=== PATIENT | male | born 1935 | race Caucasian/White ===

== ENCOUNTER → 2016-07-19 | Outpatient (CLI) | payer MEDICARE, BC, OTHER ==
[~2016-07-19] VITALS: Ht 185.4 cm; Wt 84.1 kg
[~2016-07-19] MED LIST: ALDACTONE50 MG PO; ALOE VERA CONCE1 CAP PO; B & O SUPP1 SUPP.REC RC; BILBERRY; BIOTIN; CEFTIN 250250 MG/TAB PO; CEFTIN500 MG PO; CINNAMON OIL 1 M1 ML; CIPRO 500MG TA500 MG PO; CRANBERRY1 POW; DAZIDOX10 MG PO; DITROPAN XL10 MG PO; DULCOLAX S10 MG/SUPP RC; FARXIGA5 PO; FENUGREEK; FLOMAX 0.40.4 MG/CAP PO; GINKGO4; GLUCOPHAGE500 MG/TAB PO; GLUCOSAMINE SUL1 POW; GRAPE SEED EXTR; JANUMET 500 MG-1 TA1 PO; JUNAMET; LASIX 20MG TABL20 MG PO; LEVOTHYROXINE PO; LEVSIN0.125 M1 SL; LUTEIN; METFORMIN500 MG; MIRALAX 255 GM255 GM PO; MS CONTIN 115 MG/TAB PO; MSM; NATURE S BLEND TP; NORCO 325 MG-51 TAB PO; NORCO 325 MG-7.1 TAB PO; NOVOLOG FLEX100 U/ML SQ; PHARMASSURE CHE30 MG; PHARMASSURE SA160 MG PO; PRIL40 PO; PUMPKIN SEED OIL; PYRIDIUM 100MG100 MG PO; ROXANOL 20MG20 MG/ML PO; SELENIUM; SYNTHROID0.1 MG/TAB PO; THE MEDICINE SH1 DE3 MC; TOPROL XL 25MG25 MG PO; TOUJEO300 U/ML SQ; VITAMIN C W/ROSE HIP; VITAMINE200; XARELTO15 MG PO; XARELTO20 MG PO; ZOCOR 40MG40 MG PO; ZOCOR5 MG; [UNRECOGNIZED DRUG - OTHER]; [UNRECOGNIZED DRUG - OTHER]; [UNRECOGNIZED DRUG - OTHER]; [UNRECOGNIZED DRUG - OTHER]; [UNRECOGNIZED DRUG - OTHER]; [UNRECOGNIZED DRUG - OTHER]; [UNRECOGNIZED DRUG - OTHER]; [UNRECOGNIZED DRUG - OTHER] PO
== END ==
LOC: COL.RAD 12:30 → COL.VAS 15:38
DX: C25.0 Malignant neoplasm of head of pancreas (principal)

== ENCOUNTER 2016-07-28 06:01 | Inpatient (IN) | payer MEDICARE, BC, OTHER ==
[~2016-07-28] VITALS: Ht 185.4 cm; Wt 91.3 kg
[~2016-07-28 06:01] MED LIST changes: -ALDACTONE50 MG PO; -B & O SUPP1 SUPP.REC RC; -CIPRO 500MG TA500 MG PO; -DITROPAN XL10 MG PO; -DULCOLAX S10 MG/SUPP RC; -FLOMAX 0.40.4 MG/CAP PO; -LASIX 20MG TABL20 MG PO; -LEVSIN0.125 M1 SL; -MIRALAX 255 GM255 GM PO; -MS CONTIN 115 MG/TAB PO; -NOVOLOG FLEX100 U/ML SQ; -PYRIDIUM 100MG100 MG PO; -ROXANOL 20MG20 MG/ML PO; -THE MEDICINE SH1 DE3 MC; -XARELTO15 MG PO; -XARELTO20 MG PO
[2016-07-28] MEDS ORDERED: CIPRO 500MG TA500 MG PO (06:43)
[2016-07-28 07:01] LABS: MEAN CELL VOLUME 92 fl (80.0-100.0); MEAN CORPUSCULAR HGB CONC 34 g/dl (33.0-37.0); MEAN PLATELET VOLUME 10.4 fl (7.4-10.4); PLATELET COUNT 233 K/mm3 (130-400); RED BLOOD COUNT 3.65 M/mm3 (4.20-5.60); REDCELL DISTRIBUTION WIDTH-CV 15.6 % (11.5-14.5)
[2016-07-28 07:04] LABS: ADD PATHOLOGY DIFF REVIEW NO; HEMATOCRIT 33.4 % (42.0-52.0); HEMOGLOBIN 11.3 g/dl (13.5-18.0); MEAN CORPUSCULAR HEMOGLOBIN 31 pg (27.0-31.0); WHITE BLOOD COUNT 29.5 K/mm3 (4.8-10.8)
[2016-07-28 07:15] LABS: ALBUMIN 2.6 gm/dL (3.5-5.0); BILIRUBIN,TOTAL 6.6 mg/dL (0.0-1.0); C-REACTIVE PROTEIN 6.3 mg/dL (0.0-0.9); CALCIUM 7.9 mg/dL (8.4-10.2); CREATININE, serum 0.71 mg/dL (0.66-1.25); POTASSIUM 3.7 mmol/L (3.4-5.0); TOTAL PROTEIN 5.7 gm/dL (6.4-8.2)
[2016-07-28 07:18] LABS: PH 5 (5-8); SQUAMOUS EPITHELIAL 0-2 /hpf; URINE APPEARANCE Clear; URINE BACTERIA Rare /hpf; URINE BILIRUBIN Positive (NEGATIVE); URINE BLOOD Negative (NEGATIVE); URINE COLOR Amber; URINE GLUCOSE 1+ (NEGATIVE); URINE KETONE Negative (NEGATIVE)
[2016-07-28 07:22] LABS: BAND 40 % (0-10); NEUTROPHILS 59 % (42.0-75.2); PLATELET ESTIMATE NORMAL (NORMAL); TOTAL CELLS COUNTED 100
[2016-07-28 07:28] LABS: PROLACTIN 9.9 ng/mL (3.7-17.9)
[2016-07-28 09:26] VITALS: BP 190/61; PULSE 96; TEMP 98
[2016-07-28 11:33] LABS: INR 1.2 (0.8-3.0); PROTHROMBIN TIME 13.6 SECONDS (9.7-12.8)
[2016-07-28 12:13] VITALS: BP 165/70; PULSE 97; TEMP 98.3
[2016-07-28 14:42] LABS: PERITONEAL -POLYMORPHONUCLEAR 63.5 % (0-25); PERITONEAL FLUID RBC 0 /mm3 (0-0)
[2016-07-28 15:46] VITALS: BP 130/63; PULSE 101; TEMP 98.4
[2016-07-28 20:32] VITALS: BP 116/57; PULSE 96; TEMP 99.2
[2016-07-28 23:55] VITALS: BP 107/55; PULSE 92; TEMP 99
[2016-07-29 04:01] VITALS: BP 113/56; PULSE 88; TEMP 98.8
[2016-07-29 07:57] VITALS: BP 110/51; PULSE 99; TEMP 98.4
[2016-07-29 08:46] LABS: ADD PATHOLOGY DIFF REVIEW NO
[2016-07-29 08:53] LABS: INR 1.3 (0.8-3.0); PROTHROMBIN TIME 14.9 SECONDS (9.7-12.8)
[2016-07-29 08:55] LABS: MEAN CELL VOLUME 94 fl (80.0-100.0); MEAN CORPUSCULAR HGB CONC 33 g/dl (33.0-37.0); MEAN PLATELET VOLUME 10.6 fl (7.4-10.4); PLATELET COUNT 209 K/mm3 (130-400); RED BLOOD COUNT 2.85 M/mm3 (4.20-5.60); REDCELL DISTRIBUTION WIDTH-CV 15.8 % (11.5-14.5)
[2016-07-29 09:08] LABS: ADJUSTED CALCIUM 7.6 mg/dL (8.4-10.2); BILIRUBIN,TOTAL 3.3 mg/dL (0.0-1.0); CREATININE, serum 0.56 mg/dL (0.66-1.25); MAGNESIUM 1.4 mg/dL (1.6-2.3); TOTAL PROTEIN 4.8 gm/dL (6.4-8.2)
[2016-07-29 09:10] LABS: POTASSIUM 2.9 mmol/L (3.4-5.0)
[2016-07-29 09:24] LABS: HEMATOCRIT 26.7 % (42.0-52.0); HEMOGLOBIN 8.9 g/dl (13.5-18.0); MEAN CORPUSCULAR HEMOGLOBIN 31 pg (27.0-31.0); WHITE BLOOD COUNT 27.5 K/mm3 (4.8-10.8)
[2016-07-29 09:37] LABS: THYROID STIMULATING HORMONE 5.63 uIU/mL (0.465-4.680)
[2016-07-29 09:39] LABS: BAND 31 % (0-10); HYPOCHROMIA 2+; NEUTROPHILS 67 % (42.0-75.2); PLATELET ESTIMATE NORMAL (NORMAL); TOTAL CELLS COUNTED 100
[2016-07-29 11:20] VITALS: BP 115/55; PULSE 87; TEMP 98.6
[2016-07-29 15:51] VITALS: BP 99/51; PULSE 87; TEMP 97.9
[2016-07-29 20:01] VITALS: BP 102/59; PULSE 91; TEMP 98.4
[2016-07-30] VITALS: BP 116/58; PULSE 91; TEMP 98.4
[2016-07-30 04:44] VITALS: BP 112/62; PULSE 91; TEMP 97
[2016-07-30 06:36] LABS: ADD PATHOLOGY DIFF REVIEW NO
[2016-07-30 06:50] LABS: MEAN CELL VOLUME 91 fl (80.0-100.0); MEAN CORPUSCULAR HGB CONC 34 g/dl (33.0-37.0); PLATELET COUNT 229 K/mm3 (130-400); RED BLOOD COUNT 3.14 M/mm3 (4.20-5.60); REDCELL DISTRIBUTION WIDTH-CV 15.9 % (11.5-14.5)
[2016-07-30 06:53] LABS: HEMATOCRIT 28.7 % (42.0-52.0); HEMOGLOBIN 9.7 g/dl (13.5-18.0); MEAN CORPUSCULAR HEMOGLOBIN 31 pg (27.0-31.0); WHITE BLOOD COUNT 26.6 K/mm3 (4.8-10.8)
[2016-07-30 07:01] LABS: ADJUSTED CALCIUM 9.2 mg/dL (8.4-10.2); ALBUMIN 2.2 gm/dL (3.5-5.0); BILIRUBIN,TOTAL 2.6 mg/dL (0.0-1.0); CALCIUM 7.8 mg/dL (8.4-10.2); CREATININE, serum 0.7 mg/dL (0.66-1.25); MAGNESIUM 2.1 mg/dL (1.6-2.3); POTASSIUM 3.7 mmol/L (3.4-5.0); TOTAL PROTEIN 4.7 gm/dL (6.4-8.2)
[2016-07-30 07:13] LABS: BAND 1 % (0-10); BASOPHIL 1 % (0-2); EOSINOPHIL 2 % (0-4); HYPOCHROMIA 2+; NEUTROPHILS 93 % (42.0-75.2); ROULEAUX 1+; TARGET CELLS 1+; TOTAL CELLS COUNTED 100
[2016-07-30 07:14] LABS: ANISOCYTOSIS 2+; SPHEROCYTE 1+
[2016-07-30 07:54] VITALS: BP 165/49; PULSE 65; TEMP 98.1
[2016-07-30 07:58] VITALS: BP 118/50; PULSE 100; TEMP 98.3
[2016-07-30] MEDS ORDERED: NOVOLOG FLEX100 U/ML SQ (10:48)
[2016-07-30] MEDS ORDERED: THE MEDICINE SH1 DE3 MC (10:50)
[2016-07-30 11:16] VITALS: BP 123/64; PULSE 98; TEMP 98
== END 2016-07-30 14:04 | disposition home or self-care (01) | DRG 638 ==
LOC: COL.ER 06:01 → MEDICAL 08:38
PROVIDERS: Family Medicine; Internal Medicine
PROC: 0W9G3ZX Drainage of Peritoneal Cavity, Percutaneous Approach, Diagnostic (ICD-10-PCS; principal; 2016-07-28)
DX: E11.649 Type 2 diabetes mellitus with hypoglycemia without coma (principal); C25.8 Malignant neoplasm of overlapping sites of pancreas; C78.7 Secondary malignant neoplasm of liver and intrahepatic bile duct; C78.01 Secondary malignant neoplasm of right lung; C78.02 Secondary malignant neoplasm of left lung; E44.0 Moderate protein-calorie malnutrition; R18.0 Malignant ascites; Z66 Do not resuscitate; Z79.4 Long term (current) use of insulin; Z87.891 Personal history of nicotine dependence; E83.42 Hypomagnesemia
CPT/HCPCS: 99223-AI; 99232-AI; 99239; J0696; J1644; J1650; J1815; J1956; J3475; J3480; J7030; Q9967

== ENCOUNTER 2016-07-30 13:00 | Outpatient (RCR) | payer MEDICARE, BC, OTHER ==
[2016-07-23 12:11] LABS: PH 8 (5-8); SQUAMOUS EPITHELIAL None Seen /hpf; URINE APPEARANCE Clear; URINE BACTERIA Rare /hpf; URINE BILIRUBIN Negative (NEGATIVE); URINE BLOOD Negative (NEGATIVE); URINE COLOR Amber; URINE GLUCOSE Negative (NEGATIVE); URINE KETONE Trace (NEGATIVE); URINE RBC 0-2 /hpf
[2016-07-23 12:53] VITALS: BP 142/55; PULSE 72; TEMP 97.4
[2016-07-25 10:35] VITALS: BP 108/48; PULSE 97; TEMP 98.1
[2016-07-27 15:03] VITALS: BP 112/61; PULSE 89; TEMP 98
[~2016-07-30 13:00] MED LIST changes: +CIPRO 500MG TA500 MG PO; +NOVOLOG FLEX100 U/ML SQ; +THE MEDICINE SH1 DE3 MC
[2016-08-09] MEDS ORDERED: PYRIDIUM 100MG100 MG PO (11:46)
[2016-08-09] MEDS ORDERED: FLOMAX 0.40.4 MG/CAP PO (11:46)
[2016-08-09] MEDS ORDERED: DITROPAN XL10 MG PO (11:46)
[2016-08-09] MEDS ORDERED: LASIX 20MG TABL20 MG PO (11:46)
[2016-08-09] MEDS ORDERED: LEVSIN0.125 M1 SL (11:46)
[2016-08-09] MEDS ORDERED: ALDACTONE50 MG PO (11:46)
[2016-08-09] MEDS ORDERED: NORCO 325 MG-7.1 TAB PO (11:46)
== END 2016-08-08 13:43 | disposition still patient (30) ==
LOC: EUO 13:00
PROVIDERS: Internal Medicine Medical Oncology
DX: C25.9 Malignant neoplasm of pancreas, unspecified (principal); Z45.2 Encounter for adjustment and management of vascular access device
CPT/HCPCS: C1751; J1644

== ENCOUNTER 2016-08-04 01:12 | Inpatient (IN) | payer MEDICARE, BC, OTHER ==
[~2016-08-04] VITALS: Ht 185.4 cm; Wt 92.1 kg
[2016-08-04] VITALS (11 sets, daily range): BP systolic 100–122; BP diastolic 50–66; PULSE 97–109; TEMP 97.8–98.8
[2016-08-04 02:02] LABS: MEAN CELL VOLUME 92 fl (80.0-100.0); MEAN CORPUSCULAR HGB CONC 34 g/dl (33.0-37.0); MEAN PLATELET VOLUME 11.3 fl (7.4-10.4); PLATELET COUNT 219 K/mm3 (130-400); RED BLOOD COUNT 3.52 M/mm3 (4.20-5.60); REDCELL DISTRIBUTION WIDTH-CV 16.1 % (11.5-14.5); WHITE BLOOD COUNT 12.9 K/mm3 (4.8-10.8)
[2016-08-04 02:05] LABS: ADD PATHOLOGY DIFF REVIEW NO; HEMATOCRIT 32.2 % (42.0-52.0); HEMOGLOBIN 10.8 g/dl (13.5-18.0); MEAN CORPUSCULAR HEMOGLOBIN 31 pg (27.0-31.0)
[2016-08-04 02:12] LABS: ADJUSTED CALCIUM 9.5 mg/dL (8.4-10.2); ALBUMIN 2.6 gm/dL (3.5-5.0); BILIRUBIN,TOTAL 2.1 mg/dL (0.0-1.0); CALCIUM 8.4 mg/dL (8.4-10.2); CREATININE, serum 0.63 mg/dL (0.66-1.25); POTASSIUM 4.1 mmol/L (3.4-5.0); TOTAL PROTEIN 5.3 gm/dL (6.4-8.2)
[2016-08-04 02:18] LABS: ANISOCYTOSIS 1+; BAND 63 % (0-10); EOSINOPHIL 2 % (0-4); METAMYELOCYTE 1 % (0-0); NEUTROPHILS 22 % (42.0-75.2); PLATELET ESTIMATE NORMAL (NORMAL); TOTAL CELLS COUNTED 100
[2016-08-04 03:44] LABS: PH 6 (5-8); SQUAMOUS EPITHELIAL 0-2 /hpf; URINE APPEARANCE Clear; URINE BACTERIA None Seen /hpf; URINE BILIRUBIN Negative (NEGATIVE); URINE BLOOD 2+ (NEGATIVE); URINE COLOR Amber; URINE GLUCOSE 2+ (NEGATIVE); URINE KETONE 1+ (NEGATIVE); URINE RBC 20-50 /hpf; URINE UROBILINOGEN Negative (NEGATIVE)
[2016-08-04 11:26] LABS: INR 1.3 (0.8-3.0); PROTHROMBIN TIME 14.3 SECONDS (9.7-12.8)
[2016-08-04 15:44] LABS: PERITONEAL -POLYMORPHONUCLEAR 41.2 % (0-25); PERITONEAL FLUID RBC 1000 /mm3 (0-0)
[2016-08-05] VITALS (9 sets, daily range): BP systolic 94–137; BP diastolic 47–66; PULSE 65–106; TEMP 97.8–99.6
[2016-08-05 07:10] LABS: ADD PATHOLOGY DIFF REVIEW NO
[2016-08-05 07:33] LABS: MEAN CELL VOLUME 93 fl (80.0-100.0); MEAN CORPUSCULAR HGB CONC 33 g/dl (33.0-37.0); MEAN PLATELET VOLUME 11.1 fl (7.4-10.4); PLATELET COUNT 214 K/mm3 (130-400); RED BLOOD COUNT 3.28 M/mm3 (4.20-5.60); WHITE BLOOD COUNT 8.8 K/mm3 (4.8-10.8)
[2016-08-05 07:35] LABS: ADJUSTED CALCIUM 9.3 mg/dL (8.4-10.2); ALBUMIN 2.4 gm/dL (3.5-5.0); BILIRUBIN,TOTAL 1.9 mg/dL (0.0-1.0); CREATININE, serum 0.69 mg/dL (0.66-1.25); MAGNESIUM 1.6 mg/dL (1.6-2.3); POTASSIUM 3.9 mmol/L (3.4-5.0); TOTAL PROTEIN 5.1 gm/dL (6.4-8.2)
[2016-08-05 07:37] LABS: HEMATOCRIT 30.5 % (42.0-52.0); MEAN CORPUSCULAR HEMOGLOBIN 30 pg (27.0-31.0)
[2016-08-05 08:13] LABS: BAND 37 % (0-10); EOSINOPHIL 1 % (0-4); METAMYELOCYTE 1 % (0-0); NEUTROPHILS 44 % (42.0-75.2)
[2016-08-05 08:14] LABS: MYELOCYTE 1 % (0-0); TOTAL CELLS COUNTED 100
[2016-08-05 08:16] LABS: ANISOCYTOSIS 1+; HYPOCHROMIA 1+
[2016-08-05 08:17] LABS: TOXIC GRANULATION PRESENT
[2016-08-06 03:12] VITALS: BP 102/56; PULSE 96; TEMP 98.6
[2016-08-06 07:42] VITALS: BP 109/55; PULSE 100; TEMP 98.6
[2016-08-06 13:08] VITALS: BP 118/60; PULSE 99; TEMP 98.9
[2016-08-06 17:01] VITALS: BP 105/51; PULSE 95; TEMP 98.4
[2016-08-06 20:35] VITALS: BP 102/51; PULSE 65; TEMP 98.7
[2016-08-07] VITALS (15 sets, daily range): BP systolic 96–113; BP diastolic 49–89; PULSE 89–104; TEMP 98–99
[2016-08-07 06:43] LABS: INR 1.3 (0.8-3.0); PROTHROMBIN TIME 14.9 SECONDS (9.7-12.8)
[2016-08-07 06:44] LABS: MEAN CELL VOLUME 92 fl (80.0-100.0); MEAN CORPUSCULAR HGB CONC 33 g/dl (33.0-37.0); MEAN PLATELET VOLUME 11.2 fl (7.4-10.4); PLATELET COUNT 216 K/mm3 (130-400); RED BLOOD COUNT 3.25 M/mm3 (4.20-5.60); REDCELL DISTRIBUTION WIDTH-CV 15.5 % (11.5-14.5); WHITE BLOOD COUNT 13.2 K/mm3 (4.8-10.8)
[2016-08-07 06:48] LABS: CALCIUM 7.6 mg/dL (8.4-10.2); CREATININE, serum 0.69 mg/dL (0.66-1.25); POTASSIUM 3.4 mmol/L (3.4-5.0)
[2016-08-07 06:50] LABS: HEMATOCRIT 29.9 % (42.0-52.0); MEAN CORPUSCULAR HEMOGLOBIN 31 pg (27.0-31.0)
[2016-08-07 06:51] LABS: ADD PATHOLOGY DIFF REVIEW NO
[2016-08-07 07:15] LABS: BAND 40 % (0-10); EOSINOPHIL 1 % (0-4); METAMYELOCYTE 1 % (0-0); NEUTROPHILS 52 % (42.0-75.2); PLATELET ESTIMATE NORMAL (NORMAL); TEAR DROP CELLS 1+; TOTAL CELLS COUNTED 100
[2016-08-07 20:04] LABS: MEAN CELL VOLUME 91 fl (80.0-100.0); MEAN CORPUSCULAR HGB CONC 33 g/dl (33.0-37.0); PLATELET COUNT 258 K/mm3 (130-400); REDCELL DISTRIBUTION WIDTH-CV 15.5 % (11.5-14.5)
[2016-08-07 20:05] LABS: HEMATOCRIT 33.8 % (42.0-52.0); HEMOGLOBIN 11.1 g/dl (13.5-18.0); MEAN CORPUSCULAR HEMOGLOBIN 30 pg (27.0-31.0); WHITE BLOOD COUNT 20.5 K/mm3 (4.8-10.8)
[2016-08-07 20:09] LABS: INR 1.2 (0.8-3.0); PROTHROMBIN TIME 13.9 SECONDS (9.7-12.8)
[2016-08-07 20:11] LABS: PARTIAL THROMBOPLASTIN TIME 30.2 SECONDS (26.0-37.0)
[2016-08-07 21:47] LABS: PH 5 (5-8); SQUAMOUS EPITHELIAL None Seen /hpf; URINE APPEARANCE Hazy; URINE BACTERIA None Seen /hpf; URINE BILIRUBIN Negative (NEGATIVE); URINE BLOOD 3+ (NEGATIVE); URINE COLOR Amber; URINE GLUCOSE Negative (NEGATIVE); URINE KETONE Negative (NEGATIVE); URINE RBC >50 /hpf; URINE UROBILINOGEN >=4.0 mg/dL (NEGATIVE); URINE WBC 20-50 /hpf
[2016-08-08] VITALS (7 sets, daily range): BP systolic 101–117; BP diastolic 41–56; PULSE 87–104; TEMP 98.1–99
[2016-08-09 03:56] VITALS: BP 108/47; PULSE 94; TEMP 98.7
[2016-08-09 08:18] VITALS: BP 116/51; PULSE 100; TEMP 98
[2016-08-09 08:18] LABS: MEAN CELL VOLUME 91 fl (80.0-100.0); MEAN CORPUSCULAR HGB CONC 33 g/dl (33.0-37.0); MEAN PLATELET VOLUME 11.4 fl (7.4-10.4); PLATELET COUNT 234 K/mm3 (130-400); RED BLOOD COUNT 3.32 M/mm3 (4.20-5.60); REDCELL DISTRIBUTION WIDTH-CV 15.2 % (11.5-14.5); WHITE BLOOD COUNT 15.1 K/mm3 (4.8-10.8)
[2016-08-09 08:38] LABS: CALCIUM 7.5 mg/dL (8.4-10.2); CREATININE, serum 0.69 mg/dL (0.66-1.25); POTASSIUM 3.3 mmol/L (3.4-5.0)
[2016-08-09 08:40] LABS: HEMATOCRIT 30.2 % (42.0-52.0); HEMOGLOBIN 10.1 g/dl (13.5-18.0); MEAN CORPUSCULAR HEMOGLOBIN 30 pg (27.0-31.0)
[2016-08-09 09:21] LABS: BAND 29 % (0-10); EOSINOPHIL 1 % (0-4); METAMYELOCYTE 4 % (0-0); MYELOCYTE 2 % (0-0); NEUTROPHILS 55 % (42.0-75.2); TOTAL CELLS COUNTED 100
[2016-08-09 09:23] LABS: ADD PATHOLOGY DIFF REVIEW YES
[2016-08-09] MEDS ORDERED: LASIX 20MG TABL20 MG PO (11:46)
[2016-08-09] MEDS ORDERED: NORCO 325 MG-7.1 TAB PO (11:46)
[2016-08-09] MEDS ORDERED: FLOMAX 0.40.4 MG/CAP PO (11:46)
[2016-08-09] MEDS ORDERED: LEVSIN0.125 M1 SL (11:46)
[2016-08-09] MEDS ORDERED: ALDACTONE50 MG PO (11:46)
[2016-08-09] MEDS ORDERED: DITROPAN XL10 MG PO (11:46)
[2016-08-09] MEDS ORDERED: PYRIDIUM 100MG100 MG PO (11:46)
[2016-08-09 13:26] VITALS: TEMP 98.3
[2016-08-09 19:43] VITALS: BP 102/46; PULSE 91; TEMP 97.7
[2016-08-09 23:26] VITALS: BP 115/56; PULSE 93; TEMP 97.6
[2016-08-10 04:16] VITALS: BP 130/59; PULSE 94; TEMP 98.4
[2016-08-10 07:32] VITALS: BP 134/59; PULSE 87; TEMP 98.6
[2016-08-10 08:56] LABS: PATHOLOGY DIFF REVIEW OK
[2016-08-10] MEDS ORDERED: XARELTO15 MG PO (11:23)
[2016-08-10] MEDS ORDERED: XARELTO20 MG PO (11:23)
[2016-08-10] MEDS ORDERED: B & O SUPP1 SUPP.REC RC (11:23)
[2016-08-10 12:09] VITALS: BP 120/61; PULSE 88; TEMP 98.3
== END 2016-08-10 20:33 | DRG 666 ==
LOC: COL.ER 01:12 → MEDICAL 04:40
PROVIDERS: Emergency Medicine; Family Medicine; Internal Medicine; Nurse Practitioner Family; Urology
PROC: 0TCB8ZZ Extirpation of Matter from Bladder, Via Natural or Artificial Opening Endoscopic (ICD-10-PCS; 2016-08-04)
PROC: 0W9G3ZZ Drainage of Peritoneal Cavity, Percutaneous Approach (ICD-10-PCS; principal; 2016-08-04 20:00)
PROC: 0VB08ZZ Excision of Prostate, Via Natural or Artificial Opening Endoscopic (ICD-10-PCS; 2016-08-04 20:00)
PROC: 0TBB8ZX Excision of Bladder, Via Natural or Artificial Opening Endoscopic, Diagnostic (ICD-10-PCS; 2016-08-04 20:00)
PROC: 0B9N30Z Drainage of Right Pleura with Drainage Device, Percutaneous Approach (ICD-10-PCS; 2016-08-07)
DX: C67.0 Malignant neoplasm of trigone of bladder (principal); R18.0 Malignant ascites; J90 Pleural effusion, not elsewhere classified; C25.0 Malignant neoplasm of head of pancreas; C78.7 Secondary malignant neoplasm of liver and intrahepatic bile duct; C78.01 Secondary malignant neoplasm of right lung; C78.02 Secondary malignant neoplasm of left lung; N39.0 Urinary tract infection, site not specified; I82.621 Acute embolism and thrombosis of deep veins of right upper extremity; E11.65 Type 2 diabetes mellitus with hyperglycemia; Z87.891 Personal history of nicotine dependence; N32.89 Other specified disorders of bladder
CPT/HCPCS: 99232-AI; 99239; A4315; A7048; C1729; C1769; G0103; J0690; J0696; J1644; J1650; J1815; J1940; J2250; J2270; J2405; J2704; J3010; J7030

== ENCOUNTER 2016-08-13 17:46 | Inpatient (IN) | payer MEDICARE, BC, OTHER ==
[~2016-08-13] VITALS: Ht 185.4 cm; Wt 89.9 kg
[~2016-08-13 17:46] MED LIST changes: +ALDACTONE50 MG PO; +B & O SUPP1 SUPP.REC RC; +DITROPAN XL10 MG PO; +FLOMAX 0.40.4 MG/CAP PO; +LASIX 20MG TABL20 MG PO; +LEVSIN0.125 M1 SL; +PYRIDIUM 100MG100 MG PO; +XARELTO15 MG PO; +XARELTO20 MG PO
[2016-08-13 19:25] LABS: HEMATOCRIT 37.8 % (42.0-52.0); HEMOGLOBIN 12.3 g/dl (13.5-18.0); MEAN CELL VOLUME 91 fl (80.0-100.0); MEAN CORPUSCULAR HEMOGLOBIN 30 pg (27.0-31.0); MEAN CORPUSCULAR HGB CONC 33 g/dl (33.0-37.0); MEAN PLATELET VOLUME 11.1 fl (7.4-10.4); PLATELET COUNT 394 K/mm3 (130-400); RED BLOOD COUNT 4.17 M/mm3 (4.20-5.60); REDCELL DISTRIBUTION WIDTH-CV 15.6 % (11.5-14.5); WHITE BLOOD COUNT 17.1 K/mm3 (4.8-10.8)
[2016-08-13 19:27] LABS: ADJUSTED CALCIUM 9.3 mg/dL (8.4-10.2); ALBUMIN 2.7 gm/dL (3.5-5.0); BILIRUBIN,TOTAL 1.5 mg/dL (0.0-1.0); CALCIUM 8.3 mg/dL (8.4-10.2); CREATININE, serum 0.74 mg/dL (0.66-1.25); POTASSIUM 4.3 mmol/L (3.4-5.0); TOTAL PROTEIN 5.8 gm/dL (6.4-8.2)
[2016-08-13 20:21] LABS: BAND 46 % (0-10); METAMYELOCYTE 3 % (0-0); MYELOCYTE 1 % (0-0); NEUTROPHILS 44 % (42.0-75.2); PLATELET ESTIMATE NORMAL (NORMAL); TOTAL CELLS COUNTED 100
[2016-08-13 20:22] LABS: HYPOCHROMIA 1+
[2016-08-13 20:23] LABS: ADD PATHOLOGY DIFF REVIEW YES
[2016-08-13 22:46] VITALS: BP 110/62; PULSE 88; TEMP 97.9
[2016-08-14] MEDS ORDERED: XARELTO15 MG PO (01:05)
[2016-08-14 02:05] LABS: PH 6 (5-8); SQUAMOUS EPITHELIAL None Seen /hpf; URINE APPEARANCE Hazy; URINE BACTERIA None Seen /hpf; URINE BILIRUBIN Negative (NEGATIVE); URINE BLOOD 3+ (NEGATIVE); URINE COLOR Amber; URINE GLUCOSE 3+ (NEGATIVE); URINE KETONE Negative (NEGATIVE); URINE RBC >50 /hpf; URINE UROBILINOGEN >=4.0 mg/dL (NEGATIVE)
[2016-08-14 07:17] LABS: MEAN CELL VOLUME 89 fl (80.0-100.0); MEAN CORPUSCULAR HGB CONC 33 g/dl (33.0-37.0); MEAN PLATELET VOLUME 11.1 fl (7.4-10.4); PLATELET COUNT 336 K/mm3 (130-400); RED BLOOD COUNT 3.69 M/mm3 (4.20-5.60); REDCELL DISTRIBUTION WIDTH-CV 15.3 % (11.5-14.5); WHITE BLOOD COUNT 14.4 K/mm3 (4.8-10.8)
[2016-08-14 07:19] LABS: ADD PATHOLOGY DIFF REVIEW NO; MEAN CORPUSCULAR HEMOGLOBIN 30 pg (27.0-31.0)
[2016-08-14 07:26] LABS: CALCIUM 7.8 mg/dL (8.4-10.2); CREATININE, serum 0.68 mg/dL (0.66-1.25); POTASSIUM 3.8 mmol/L (3.4-5.0)
[2016-08-14 07:34] LABS: BAND 27 % (0-10); BASOPHIL 1 % (0-2); EOSINOPHIL 1 % (0-4); METAMYELOCYTE 1 % (0-0); NEUTROPHILS 61 % (42.0-75.2); PLATELET ESTIMATE NORMAL (NORMAL); TOTAL CELLS COUNTED 100
[2016-08-14 08:15] VITALS: BP 109/53; PULSE 87; TEMP 98.4
[2016-08-14 08:48] LABS: PATHOLOGY DIFF REVIEW OK
[2016-08-14] MEDS ORDERED: CIPRO 500MG TA500 MG PO (16:19)
[2016-08-14] MEDS ORDERED: ROXANOL 20MG20 MG/ML PO (16:20)
[2016-08-14 17:19] VITALS: BP 111/53; PULSE 89; TEMP 97.5
[2016-08-14 19:19] VITALS: BP 108/52; PULSE 83; TEMP 99.5
[2016-08-14 23:41] VITALS: BP 106/57; PULSE 79; TEMP 97.8
[2016-08-15 03:40] VITALS: BP 97/49; PULSE 84; TEMP 97.8
[2016-08-15 08:07] VITALS: BP 104/56; PULSE 85; TEMP 98.8
[2016-08-15 11:38] VITALS: BP 101/49; PULSE 78; TEMP 98.3
[2016-08-15 15:58] VITALS: BP 101/41; PULSE 85; TEMP 97.7
[2016-08-15 19:31] VITALS: BP 108/59; PULSE 80; TEMP 98.4
[2016-08-15 23:50] VITALS: BP 91/46; PULSE 81; TEMP 98.9
[2016-08-16 04:29] VITALS: BP 101/45; PULSE 87; TEMP 98.6
[2016-08-16] MEDS ORDERED: DULCOLAX S10 MG/SUPP RC (08:46)
[2016-08-16] MEDS ORDERED: MIRALAX 255 GM255 GM PO (08:46)
[2016-08-16] MEDS ORDERED: MS CONTIN 115 MG/TAB PO (08:53)
[2016-08-16 09:05] VITALS: BP 106/53; PULSE 95; TEMP 97.8
[2016-08-16 12:18] VITALS: BP 107/57; PULSE 69; TEMP 98
== END 2016-08-16 17:34 | disposition hospice, home (50) | DRG 435 ==
LOC: COL.ER 17:46 → MEDICAL 21:27
PROVIDERS: Family Medicine; Nurse Practitioner Family
PROC: 0W993ZZ Drainage of Right Pleural Cavity, Percutaneous Approach (ICD-10-PCS; principal; 2016-08-14)
DX: C25.0 Malignant neoplasm of head of pancreas (principal); E43 Unspecified severe protein-calorie malnutrition; C78.7 Secondary malignant neoplasm of liver and intrahepatic bile duct; C78.02 Secondary malignant neoplasm of left lung; C78.01 Secondary malignant neoplasm of right lung; Z51.5 Encounter for palliative care; Z66 Do not resuscitate; E87.1 Hypo-osmolality and hyponatremia; N39.0 Urinary tract infection, site not specified; I82.621 Acute embolism and thrombosis of deep veins of right upper extremity; R18.0 Malignant ascites; J90 Pleural effusion, not elsewhere classified; R33.9 Retention of urine, unspecified; E03.9 Hypothyroidism, unspecified; I10 Essential (primary) hypertension; E11.9 Type 2 diabetes mellitus without complications; Z79.4 Long term (current) use of insulin; Z68.26 Body mass index [BMI] 26.0-26.9, adult; Z86.73 Personal history of transient ischemic attack (TIA), and cerebral infarction without residual deficits
CPT/HCPCS: OP; 99232-AI; 99239; G0378; J0744; J1170; J1815; J1940; J2270; J3480; Q9967